=== PATIENT | male | born 1945 | race Caucasian/White ===

== ENCOUNTER 2018-08-08 07:30 | Inpatient (IN) | payer MEDICARE, MEDICAID ==
[~2018-08-08] VITALS: Ht 188 cm; Wt 97.5 kg
[2018-12-15] MEDS ORDERED: VITAMIN D (16:10)
[2018-12-15] MEDS ORDERED: OMEPRAZOLE (16:10)
[2018-12-15] MEDS ORDERED: NIACIN (16:10)
[2018-12-15] MEDS ORDERED: BUDE10.2 INH (16:10)
[2018-12-15] MEDS ORDERED: HYDR-3565 PO (16:10)
[2018-12-15] MEDS ORDERED: VITAMIN C (16:10)
[2018-12-15] MEDS ORDERED: VITAMIN E (16:10)
[2018-12-15] MEDS ORDERED: NINT150C (16:10)
[2018-12-15] MEDS ORDERED: ASPI-611 PO (16:10)
[2018-12-15] MEDS ORDERED: VIAGRA (16:10)
[2018-12-15 17:50] LABS: BASOPHILS # (AUTO) 0.1 X10'3 (0-0.2); BASOPHILS % (AUTO) 1.1 % (0-1); EOSINOPHILS # (AUTO) 0.1 X10'3 (0-0.9); EOSINOPHILS % (AUTO) 2.7 % (0-6); LYMPHOCYTES # (AUTO) 1.4 X10'3 (1.1-4.8); LYMPHOCYTES % (AUTO) 26.5 % (21-51); MEAN CORPUSCULAR HEMOGLOBIN 30.7 PG (27.0-31.0); MEAN CORPUSCULAR HGB CONC 34.2 g/dL (33.0-36.5); MEAN CORPUSCULAR VOLUME 89.8 FL (78-98); MEAN PLATELET VOLUME 8.7 FL (7.4-10.4); MONOCYTES # (AUTO) 0.5 X10'3 (0-0.9); MONOCYTES % (AUTO) 9.2 % (2-12); NEUTROPHILS # (AUTO) 3.1 X10'3 (1.8-7.7); NEUTROPHILS % (AUTO) 60.5 % (42-75); PRE OP HEMOGLOBIN 15.4 g/dL (14.0-17.9); PRE OP PLATELET COUNT 240 X10'3 (140-440); RED BLOOD COUNT 5.01 X10'6 (4.70-6.10); RED CELL DISTRIBUTION WIDTH 14.1 % (11.5-14.5)
[2018-12-15 17:58] LABS: ALBUMIN 3.7 G/DL (3.4-5.0); ALKALINE PHOSPHATASE 55 IU/L (46-116); BLOOD UREA NITROGEN 11 MG/DL (7-18); BUN/CREATININE RATIO 11.8 (5.4-32.0); CALCIUM 9.1 MG/DL (8.5-10.1); CHLORIDE 101 MMOL/L (99-107); CREATININE 0.93 MG/DL (0.60-1.10); PRE OP ALT 31 U/L (30-65); PRE OP ANION GAP 8 (8-16); PRE OP AST 24 U/L (10-37); PRE OP BILIRUB, TOTAL 0.3 MG/DL (0.0-1.0); PRE OP GLUCOSE 87 MG/DL (70-104); PRE OP SODIUM 138 MMOL/L (135-145); TOTAL CARBON DIOXIDE 29.4 MMOL/L (24-32); TOTAL PROTEIN 7.3 G/DL (6.4-8.2); eGFR 79 ML/MIN
[2018-12-30] VITALS (22 sets, daily range): BP systolic 123–159; BP diastolic 70–94
[2018-12-30] MEDS ORDERED: famotidine 20mg tablet PO ONE (07:30)
[2018-12-30] MEDS ORDERED: ringers solution, lacted 1,000 ML IV SCH ×2 (07:30→10:22)
[2018-12-30] MEDS ORDERED: tranexamic acid inj. 1,000 MG in normal saline 100 ML IV ONE (07:30)
[2018-12-30] MEDS ORDERED: cefazolin/dext.iso 2gm/100 ML IV ONE (07:30)
[2018-12-30] MEDS ORDERED: VANCOMYCIN INJ 1000 MG in NORMAL SALINE 250ml IV.SOLN IV ONE (07:30)
[2018-12-30] MEDS ORDERED: fentaNYL /PF 50mcg/ml 5ml ampule ONE (08:47)
[2018-12-30] MEDS ORDERED: BUPIVAcaine/PF 2.5mg/ml (0.25%) 10ml vial ONE (09:06)
[2018-12-30] MEDS ORDERED: sevoflurane 250ml liquid IH ONE (09:21)
[2018-12-30] MEDS ORDERED: ROPIVAcaine 0.2%/PF PAIN PUMP 550 ML IJ SCH (10:22)
[2018-12-30] MEDS ORDERED: HYDROmorphone inj. 0.5 MG/0.5 ML DISP.SYRIN IV PRN ×3 (10:25→12:05)
[2018-12-30] MEDS ORDERED: morphine 4 MG/ML inj SYRINge IV PRN (10:25)
[2018-12-30] MEDS ORDERED: ondansetron/PF 4mg/2ml inj IV PRN ×2 (10:25→12:05)
[2018-12-30] MEDS ORDERED: tranexamic acid inj. 1,000 MG in normal saline 100ml IV soln 100 ML IV ONE ×2 (10:30→15:15)
[2018-12-30] MEDS ORDERED: midazolam 2 mg/2 ml injection ONE (10:33)
[2018-12-30] MEDS ORDERED: ROPIVAcaine 0.5% (5mg/ml) 30ml vial ONE (10:35)
[2018-12-30] MEDS ORDERED: ketorolac trometh. 30mg/ml inj. ONE (10:35)
--- NOTE | 2018-12-30 12:00 | NUR ---
Received from OR via bed, accompanied by Anesthesiologist. Report received. Initial physical assessment done and recorded.
[2018-12-30] MEDS ORDERED: diphenhydrAMINE 25mg capsule PO PRN ×2 (12:05)
[2018-12-30] MEDS ORDERED: HYDROmorphone 1 mg/ml syringe IV PRN (12:05)
[2018-12-30] MEDS ORDERED: acetaminophen 325mg tablet PO PRN ×2 (12:05→12:19)
[2018-12-30] MEDS ORDERED: oxyCODONE IR 5mg (immed. release) tablet PO PRN ×2 (12:05)
[2018-12-30] MEDS ORDERED: bisacodyl 10mg suppository rectal RC PRN (12:05)
[2018-12-30] MEDS ORDERED: magnesium hydroxide 30ml (MOM) UD suspension PO PRN (12:05)
[2018-12-30] MEDS: NINTEDANIB ESYLATE 150 MG PO SCH ×2 (12:30→20:10)
[2018-12-30] MEDS: gabapentin 300mg capsule PO SCH ×2 (13:00→21:00)
[2018-12-30] MEDS ORDERED: ondansetron/PF 4mg/2ml inj ONE (13:24)
[2018-12-30] MEDS ORDERED: rocuronium 10mg/ml inj IV ONE (13:24)
[2018-12-30] MEDS ORDERED: LIDOcaine 2% (20mg/ml) 5ml vial ONE (13:24)
[2018-12-30] MEDS ORDERED: propofol inj 20 ML IV ONE (13:24)
[2018-12-30] MEDS ORDERED: neostigmine methylsulfate 1 MG/ML 10ml vial ONE (13:24)
[2018-12-30] MEDS ORDERED: dexamethasone sod phosphate 4mg/ml inj. ONE (13:24)
[2018-12-30] MEDS ORDERED: glycopyrrolate 0.2mg/ml inj ONE (13:24)
[2018-12-30] MEDS: ketorolac tromethamine 15mg/ml inj. IV SCH ×2 (14:00→20:00)
[2018-12-30] MEDS: acetaminophen 325mg tablet PO SCH ×2 (14:00→20:00)
--- NOTE | 2018-12-30 14:30 | NUR ---
Discharge criteria met, report to receiving floor. Transferred to room in stable condition.
[2018-12-30] MEDS: potassium cl 20mEq in 1/2 NS 1,000 ML IV SCH ×2 (17:35→20:01)
[2018-12-30] MEDS: ceFAZolin 1GM/D5W- ADD-VANTAGE 50 ML IV SCH (17:36)
[2018-12-30] MEDS: budesonide 0.5mg/2ml UD nebule IH SCH (20:00)
[2018-12-30] MEDS ORDERED: vancomycin/NS 1 GM ADD-VANTAGE 250 ML IV SCH (20:00)
[2018-12-30] MEDS: albuterol 2.5 MG/3 ML nebule NEB SCH ×2 (21:00→23:35)
[2018-12-30] MEDS ORDERED: sennosides 8.6mg tablet PO SCH (21:00)
--- NOTE | 2018-12-30 21:00 | NUR ---
noted pt brought own medication for his rare lung disease Idiopathic pulmonary fibrosis. and pt took own med as MD ordered.
[2018-12-31] MEDS: ceFAZolin 1GM/D5W- ADD-VANTAGE 50 ML IV SCH (01:01)
[2018-12-31] MEDS: albuterol 2.5 MG/3 ML nebule NEB SCH ×2 (03:00→09:14)
[2018-12-31] MEDS: acetaminophen 325mg tablet PO SCH ×2 (03:18→08:00)
[2018-12-31] MEDS: ketorolac tromethamine 15mg/ml inj. IV SCH ×2 (03:18→08:00)
[2018-12-31] MEDS: potassium cl 20mEq in 1/2 NS 1,000 ML IV SCH (04:01)
--- NOTE | 2018-12-31 06:00 | NUR ---
Patient in room [facility] 4015. I have received report from and had the opportunity to ask questions and assume patient care SAMM Celis.
[2018-12-31 06:01] LABS: BASOPHILS % (AUTO) 0.2 % (0-1); EOSINOPHILS % (AUTO) 0 % (0-6); HEMATOCRIT 40.4 % (42.0-52.0); LYMPHOCYTES # (AUTO) 0.9 X10'3 (1.1-4.8); LYMPHOCYTES % (AUTO) 7.9 % (21-51); MEAN CORPUSCULAR HEMOGLOBIN 31.3 PG (27.0-31.0); MEAN CORPUSCULAR HGB CONC 34.8 g/dL (33.0-36.5); MEAN CORPUSCULAR VOLUME 90.2 FL (78-98); MEAN PLATELET VOLUME 8.5 FL (7.4-10.4); MONOCYTES # (AUTO) 0.8 X10'3 (0-0.9); MONOCYTES % (AUTO) 7.3 % (2-12); NEUTROPHILS # (AUTO) 9.8 X10'3 (1.8-7.7); NEUTROPHILS % (AUTO) 84.6 % (42-75); PLATELET COUNT 168 X10'3 (140-440); RED BLOOD COUNT 4.48 X10'6 (4.70-6.10); RED CELL DISTRIBUTION WIDTH 13.8 % (11.5-14.5); WHITE BLOOD COUNT 11.6 X10'3 (4.5-11.0)
[2018-12-31 06:10] LABS: ANION GAP 12 (8-16); CHLORIDE 100 MMOL/L (99-107); POTASSIUM 4.2 MMOL/L (3.5-5.1); SODIUM 135 MMOL/L (135-145); TOTAL CARBON DIOXIDE 23.5 MMOL/L (24-32)
--- NOTE | 2018-12-31 06:37 | NUR ---
pt walking with PT. still minimal feeling to right shoulder
[2018-12-31] MEDS: NINTEDANIB ESYLATE 150 MG PO SCH (08:00)
[2018-12-31] MEDS: gabapentin 300mg capsule PO SCH (08:00)
[2018-12-31] MEDS ORDERED: aspirin 325mg tablet PO SCH (08:30)
[2018-12-31] MEDS: budesonide 0.5mg/2ml UD nebule IH SCH (09:14)
--- NOTE | 2018-12-31 13:49 | NUR ---
Joint consult: Pt seen by RODRIGO for written/verbal high protein ed w/ RD contact information. Pt reports good appetite at home and no additional protein needs at this time. Will continue to monitor. Addendum: 12/31/18 at [address] Amended: Links added.
--- NOTE | 2018-12-31 15:40 | NUR ---
Pt DC home. VSS, DC documents signed per protocol, DC packet sent home w/pt. pt denies SOB, resp distress, pain, N/V, syncope on DC. After care instructions provided. pt verbalized understanding. pt escorted FRANCISCO JAVIER in WC by [facility] staff member & pt spouse. pt transferred safely into personal vehicle to go home. pt thanked [facility] staff for his care.
[2018-12-31] MEDS ORDERED: celeCOXIB 100mg capsule PO SCH (20:00)
[2019-01-01] MEDS ORDERED: acetaminophen 325mg tablet PO PRN (12:05)
== END 2018-12-31 14:30 | disposition home or self-care (01) | DRG 483 ==
LOC: PAS IN 12-30 06:32 → EDSTATUS 12-30 10:15 → ORTHO 4S 12-30 14:00
PROVIDERS: ADMIT Orthopaedic Surgery; ATTEND Orthopaedic Surgery
PROC: 0LS40ZZ Reposition Left Upper Arm Tendon, Open Approach (ICD-10-PCS; 2018-12-30)
PROC: 3E0T3BZ Introduction of Anesthetic Agent into Peripheral Nerves and Plexi, Percutaneous Approach (ICD-10-PCS; 2018-12-30)
PROC: 0RRK0JZ Replacement of Left Shoulder Joint with Synthetic Substitute, Open Approach (ICD-10-PCS; principal; 2018-12-30 09:21)
DX: M19.012 Primary osteoarthritis, left shoulder (principal); M75.22 Bicipital tendinitis, left shoulder; M65.9 Synovitis and tenosynovitis, unspecified; J84.10 Pulmonary fibrosis, unspecified; G89.29 Other chronic pain
CPT/HCPCS: 36415; 71045; 80051; 80053; 82948; 85025; 87070; 93005; 94640; 94760; 97110; 97161; 97530; A4565; A7000; C1713; C1776; G0378; J0690; J1100; J1885; J2001; J2250; J2405; J2704; J2710; J2795; J3010; J3370; J3490; J7030; J7040; J7120; J7626; Q0163